=== PATIENT | female | born 1990 | race Caucasian/White ===

== ENCOUNTER 2022-04-07 04:28 | Day surgery (SDC) | payer OTHER ==
[2022-04-06 15:09] VITALS: BMI 37.5
[2022-04-07] MEDS ORDERED: DEXAMETHASONE SOD PHOSPHATE 4 MG/1 ML VIAL ONE (13:39)
[2022-04-07] MEDS ORDERED: ONDANSETRON 4 MG/2 ML VIAL ONE (13:39)
[2022-04-07] MEDS ORDERED: LIDOCAINE HCL/PF 2% SDV 5ML VIAL ONE (13:39)
[2022-04-07] MEDS ORDERED: PROPOFOL 20 ML ONE ×2 (13:40→14:15)
[2022-04-07] MEDS ORDERED: MIDAZOLAM HCL 2 MG/2 ML SINGLE DOSE VIAL ONE (13:40)
[2022-04-07] MEDS ORDERED: ceFAZolin SODIUM 1 GM VIAL IVPB ONE (14:20)
[2022-04-07] MEDS ORDERED: ceFAZolin SODIUM 1 GM VIAL ONE (14:23)
[2022-04-07] MEDS ORDERED: ONDANSETRON 4 MG/2 ML VIAL IVPUSH PRN (15:37)
[2022-04-07] MEDS ORDERED: oxyCODONE HCL 5 MG TABLET PO PRN (15:37)
[2022-04-07] MEDS ORDERED: LACTATED RINGERS SOLUTION 1,000 ML IV SCH (15:45)
[2022-04-07 17:23] VITALS: RESP 16; TEMP 98
[2022-04-07 17:24] VITALS: BP 103/63; PULSE 79
== END 2022-04-07 17:30 | disposition home or self-care (01) ==
LOC: JASU-SURG 04:28
PROVIDERS: ATTEND Obstetrics & Gynecology
PROC: 10D17ZZ Extraction of Products of Conception, Retained, Via Natural or Artificial Opening (ICD-10-PCS; principal; 2022-04-07 15:00)
DX: O02.1 Missed abortion (principal)
CPT/HCPCS: 88305-TC; 94760

== ENCOUNTER 2022-11-13 15:09 | Emergency (ER) | payer OTHER ==
[2022-11-13 15:26] VITALS: TEMP 98.5; BMI 35.6
[2022-11-13] MEDS ORDERED: ACETAMINOPHEN 500 MG TABLET (FP) PO ONE (15:41)
[2022-11-13] MEDS ORDERED: ACETAMINOPHEN 325 MG TABLET (FP) ONE (15:46)
[2022-11-13] MEDS ORDERED: KETOROLAC TROMETHAMINE 15 MG/ML VIAL IVPUSH ONE (17:29)
[2022-11-13] MEDS ORDERED: KETOROLAC TROMETHAMINE 15 MG/ML VIAL ONE (17:47)
[2022-11-13 18:23] LABS: BASO % 0.5 % (0-2.0); EOS % 0.7 % (0-4.5); HEMATOCRIT 40.5 % (32.4-45.2); LYMPH % 24.2 % (8-40); MCH 29.4 pg (25.7-33.7); MCHC 34.7 g/dl (32.0-36.0); MEAN CELL VOLUME 84.7 fl (80-96); MEAN PLT VOLUME 7.6 fl (7.5-11.1); MONO % 5.6 % (3.8-10.2); PLATELET COUNT 281 10^3/uL (134-434); RBC 4.77 M/mm3 (3.60-5.2); WHITE BLOOD COUNT 9.3 K/mm3 (4.0-10.0)
[2022-11-13 18:41] LABS: CALCIUM 8.9 mg/dL (8.5-10.1)
[2022-11-13 18:42] LABS: ALBUMIN 3.8 g/dl (3.4-5.0); BLOOD UREA NITROGEN 10.6 mg/dL (7-18)
[2022-11-13 18:45] LABS: CREATININE 0.6 mg/dL (0.55-1.3)
[2022-11-13 18:47] LABS: BILIRUBIN,TOTAL 0.6 mg/dL (0.2-1)
[2022-11-13 19:21] VITALS: BP 118/78; PULSE 92; RESP 16
== END 2022-11-13 19:21 | disposition home or self-care (01) ==
LOC: JER 15:09
PROC: 3E0333Z Introduction of Anti-inflammatory into Peripheral Vein, Percutaneous Approach (ICD-10-PCS; principal; 2022-11-13)
DX: R07.89 Other chest pain (principal); M54.9 Dorsalgia, unspecified; R05.9 Cough, unspecified; Z20.822 Contact with and (suspected) exposure to COVID-19
CPT/HCPCS: 0241U-QW; 36415; 71046-TC-FY; 80053; 84484; 84703; 85025; 93005; 93010; 99285-25

== ENCOUNTER 2023-05-13 11:35 | Emergency (ER) | payer OTHER ==
[2023-05-13 11:50] VITALS: BP 114/71; PULSE 106; RESP 16; TEMP 97.7; BMI 34.7
== END 2023-05-13 12:44 | disposition home or self-care (01) ==
LOC: JERFT 11:35
DX: L42 Pityriasis rosea (principal); R21 Rash and other nonspecific skin eruption; L29.9 Pruritus, unspecified
CPT/HCPCS: 99283-25